=== PATIENT | male | born 1965 | race Caucasian/White ===

== ENCOUNTER 2022-11-06 09:09 | Inpatient (IN) | payer OTHER ==
[2022-11-06 11:55] VITALS: BMI 26.4
[2022-11-06] MEDS ORDERED: ACETAMINOPHEN 325 MG TABLET (FP) PO PRN (13:19)
[2022-11-06] MEDS ORDERED: BENZOCAINE/MENTHOL (CHLORASEPTIC ) LOZENGE MM PRN (13:19)
[2022-11-06] MEDS ORDERED: BISMUTH SUBSALICYLATE 524 MG/30 ML PO PRN (13:19)
[2022-11-06] MEDS ORDERED: ONDANSETRON *ODT* 4 MG TABLET SL PRN (13:19)
[2022-11-06] MEDS ORDERED: POLYETHYLENE GLYCOL (HEALTHYLAX) 3350 17 GM PACKET PO PRN (13:19)
[2022-11-06] MEDS ORDERED: DICYCLOMINE HCL 10 MG CAPSULE PO PRN (13:19)
[2022-11-06] MEDS ORDERED: IBUPROFEN 400 MG TABLET (FP) PO PRN (13:19)
[2022-11-06] MEDS ORDERED: NICOTINE 10 MG CARTRIDGE (INHALER) IH PRN (13:19)
[2022-11-06] MEDS ORDERED: chlordiazePOXIDE HCL 25 MG CAPSULE PO PRN (13:19)
[2022-11-06] MEDS ORDERED: hydrOXYzine PAMOATE 25 MG CAPSULE (FP) PO PRN (13:19)
[2022-11-06] MEDS ORDERED: NALOXONE HCL (KLOXXADO) 8 MG SPRAY NS PRN (13:19)
[2022-11-06] MEDS ORDERED: MAG HYDROX/AL HYDROX/SIMETH 30 ML UNIT-DOSE CUP PO PRN (13:19)
[2022-11-06] MEDS ORDERED: MAGNESIUM HYDROX 2400MG/30ML ORAL SUSPENSION 30 ML CUP PO PRN (13:19)
[2022-11-06] MEDS ORDERED: hydrOXYzine PAMOATE 25 MG CAPSULE (FP) PO ONE (13:49)
[2022-11-06] MEDS ORDERED: chlordiazePOXIDE HCL 25 MG CAPSULE ONE (13:49)
[2022-11-06] MEDS: NICOTINE 14 MG/24 HOURS TOPICAL PATCH TD SCH (14:18)
[2022-11-06] MEDS: PRENATAL VITAMINS W/ FOLIC ACID TABLET (FP) PO SCH (14:18)
[2022-11-06] MEDS: chlordiazePOXIDE HCL 25 MG CAPSULE PO SCH ×2 (17:21→22:34)
[2022-11-06] MEDS: LOPERAMIDE HCL 2 MG CAPSULE PO PRN ×2 (17:24→22:38)
[2022-11-06] MEDS ORDERED: MELATONIN 5 MG TABLETS PO SCH (22:00)
[2022-11-06] MEDS: THIAMINE HCL 100 MG TABLET (FP) PO SCH (22:34)
[2022-11-07] MEDS: chlordiazePOXIDE HCL 25 MG CAPSULE PO SCH ×4 (05:45→22:18)
[2022-11-07] MEDS: NICOTINE 14 MG/24 HOURS TOPICAL PATCH TD SCH (10:07)
[2022-11-07] MEDS: PRENATAL VITAMINS W/ FOLIC ACID TABLET (FP) PO SCH (10:08)
[2022-11-07] MEDS: IBUPROFEN 600 MG TABLET (FP) PO PRN (10:26)
[2022-11-07] MEDS: METHOCARBAMOL 500 MG TABLET PO PRN ×2 (10:26→22:21)
[2022-11-07 11:33] LABS: HEMATOCRIT 44.3 % (35.4-49); MCH 29.5 pg (25.7-33.7); MCHC 33.9 g/dl (32.0-35.9); MEAN PLT VOLUME 7.7 fl (7.5-11.1); PLATELET COUNT 260 10^3/uL (134-434); RBC 5.09 M/mm3 (4.00-5.60); RDW 15.5 % (11.9-15.9); WHITE BLOOD COUNT 7.8 K/mm3 (4.0-10.0)
[2022-11-07 12:13] LABS: BLOOD UREA NITROGEN 17.8 mg/dL (7-18); CALCIUM 8.9 mg/dL (8.5-10.1)
[2022-11-07 12:14] LABS: ALBUMIN 3.4 g/dl (3.4-5.0)
[2022-11-07 12:18] LABS: BILIRUBIN,TOTAL 1.2 mg/dL (0.2-1); TOT PROT 6.5 g/dl (6.4-8.2)
[2022-11-07] MEDS ORDERED: MINERAL OIL/PET HY-PHL TOPICAL OINTMENT 454 GM JAR TP PRN (15:58)
[2022-11-07] MEDS: LACTULOSE 20 GM/30 ML UDC (FOR ORAL USE ONLY) PO SCH ×2 (16:55→22:16)
[2022-11-07] MEDS: THIAMINE HCL 100 MG TABLET (FP) PO SCH (22:17)
[2022-11-07] MEDS: QUEtiapine FUMARATE 100 MG TABLET (FP) PO PRN (22:21)
[2022-11-08] MEDS: chlordiazePOXIDE HCL 25 MG CAPSULE PO SCH ×4 (06:00→22:12)
[2022-11-08] MEDS: LACTULOSE 20 GM/30 ML UDC (FOR ORAL USE ONLY) PO SCH ×3 (06:05→22:13)
[2022-11-08] MEDS: NICOTINE 14 MG/24 HOURS TOPICAL PATCH TD SCH (11:01)
[2022-11-08] MEDS: PRENATAL VITAMINS W/ FOLIC ACID TABLET (FP) PO SCH (11:01)
[2022-11-08] MEDS: ACETAMINOPHEN 325 MG TABLET (FP) PO PRN ×2 (11:14→17:12)
[2022-11-08] MEDS: METHOCARBAMOL 500 MG TABLET PO PRN ×3 (11:14→22:53)
[2022-11-08] MEDS: THIAMINE HCL 100 MG TABLET (FP) PO SCH (22:12)
[2022-11-08] MEDS: QUEtiapine FUMARATE 100 MG TABLET (FP) PO PRN (22:15)
[2022-11-09] MEDS ORDERED: chlordiazePOXIDE HCL 10 MG CAPSULE PO PRN
[2022-11-09] MEDS: chlordiazePOXIDE HCL 10 MG CAPSULE PO SCH ×4 (06:00→22:09)
[2022-11-09] MEDS: LACTULOSE 20 GM/30 ML UDC (FOR ORAL USE ONLY) PO SCH ×3 (06:03→22:13)
[2022-11-09] MEDS: ACETAMINOPHEN 325 MG TABLET (FP) PO PRN ×2 (06:04→11:35)
[2022-11-09] MEDS: METHOCARBAMOL 500 MG TABLET PO PRN ×4 (06:04→23:59)
[2022-11-09] MEDS: PRENATAL VITAMINS W/ FOLIC ACID TABLET (FP) PO SCH (11:09)
[2022-11-09] MEDS: NICOTINE 14 MG/24 HOURS TOPICAL PATCH TD SCH (11:11)
[2022-11-09] MEDS: IBUPROFEN 600 MG TABLET (FP) PO PRN (12:51)
[2022-11-09] MEDS: THIAMINE HCL 100 MG TABLET (FP) PO SCH (22:10)
[2022-11-09] MEDS: QUEtiapine FUMARATE 100 MG TABLET (FP) PO PRN (22:12)
[2022-11-10] MEDS: ACETAMINOPHEN 325 MG TABLET (FP) PO PRN
[2022-11-10] MEDS ORDERED: chlordiazePOXIDE HCL 10 MG CAPSULE PO SCH (05:00)
[2022-11-10] MEDS: METHOCARBAMOL 500 MG TABLET PO PRN (05:43)
[2022-11-10 07:40] VITALS: RESP 18
[2022-11-10 09:49] VITALS: BP 157/87; PULSE 74; TEMP 97.5
[2022-11-10] MEDS: PRENATAL VITAMINS W/ FOLIC ACID TABLET (FP) PO SCH (10:08)
[2022-11-10] MEDS: NICOTINE 14 MG/24 HOURS TOPICAL PATCH TD SCH (10:11)
[2022-11-11] MEDS ORDERED: chlordiazePOXIDE HCL 10 MG CAPSULE PO ONE (05:00)
== END 2022-11-10 11:10 | disposition home or self-care (01) | DRG 775 ==
LOC: YASAS 09:09 → UNDOADMIN 11:40 → Y6N 11:40
PROVIDERS: ADMIT Allergy & Immunology; ATTEND Surgery
PROC: HZ2ZZZZ Detoxification Services for Substance Abuse Treatment (ICD-10-PCS; principal; 2022-11-06)
DX: F10.230 Alcohol dependence with withdrawal, uncomplicated (principal); F16.10 Hallucinogen abuse, uncomplicated; F17.210 Nicotine dependence, cigarettes, uncomplicated; F10.282 Alcohol dependence with alcohol-induced sleep disorder; F10.24 Alcohol dependence with alcohol-induced mood disorder; F41.9 Anxiety disorder, unspecified; F32.A Depression, unspecified; F43.10 Post-traumatic stress disorder, unspecified; E72.20 Disorder of urea cycle metabolism, unspecified; Z62.810 Personal history of physical and sexual abuse in childhood
CPT/HCPCS: 36415; 80053; 82140; 85027; 86780; 87811; C9803-CS; U0003; U0005